=== PATIENT | female | born 1950 | race African-American/Black ===

== ENCOUNTER 2017-02-21 00:31 | Emergency (ER) | payer MEDICAID ==
[~2017-02-21] VITALS: Ht 167.6 cm; Wt 85.0 kg
[~2017-02-21 00:31] MED LIST: BRIM5DRO EACHEYE
[2017-02-21] MEDS ORDERED: ONDANSETRON 4MG ODT PO ONE (05:00)
[2017-02-21] MEDS ORDERED: KETOROLAC 30MG/ML VIAL IM ONE (05:00)
[2017-02-21 07:39] VITALS: BP 126/68
== END 2017-02-21 07:41 | disposition home or self-care (01) ==
LOC: ER 00:31
DX: L03.115 Cellulitis of right lower limb (principal); I11.0 Hypertensive heart disease with heart failure; I50.9 Heart failure, unspecified; E11.9 Type 2 diabetes mellitus without complications
CPT/HCPCS: 93971; 96372; 99284; J1885; Q0162; Z7610

== ENCOUNTER 2018-07-13 22:46 | Emergency (ER) | payer MEDICARE, MEDICAID ==
[~2018-07-13] VITALS: Ht 162.6 cm; Wt 81.8 kg
[2018-07-13] MEDS ORDERED: HYDROCODONE/ACETAMINOPHEN 5/325MG TABLET PO STA (23:09)
[2018-07-13 23:53] LABS: BASOPHILS % 0.3 % (0.0-2.0); EOSINOPHILS % 1.2 % (0.0-5.0); HEMATOCRIT. 33.7 % (36.0-48.0); LYMPHOCYTES % 30.3 % (20.0-50.0); MEAN CORPUSCULAR HEMOGLOBIN 24.7 pg (28.0-32.0); MEAN CORPUSCULAR VOLUME 75.6 fL (81.0-99.0); MEAN PLATELET VOLUME 9.4 fl (7.4-10.4); MONOCYTES % 8.3 % (2.0-8.0); NEUTROPHILS % 59.9 % (40.0-76.0); PLATELET 150 x1000/uL (130-400); RED BLOOD CELL COUNT 4.46 mill/uL (4.2-5.4); RED CELL DISTRIBUTION WIDTH 15.4 % (11.6-14.6)
[2018-07-13 23:59] LABS: CHLORIDE 96 mEq/L (98-107)
[2018-07-14 01:35] LABS: CLARITY URINE CLEAR (CLEAR); COLOR URINE YELLOW (YELLOW); KETONES URINE NEGATIVE (NEGATIVE); LEUKOCYTE ESTERASE URINE NEGATIVE (NEGATIVE); NITRITE URINE NEGATIVE (NEGATIVE); OCCULT BLOOD URINE TRACE (NEGATIVE); PH URINE 6.5 (4.5-8.0); PROTEIN URINE 2+ (NEGATIVE); UROBILINOGEN URINE 0.2 E.U./dL (0.2-1.0)
[2018-07-14] MEDS ORDERED: INSULIN REGULAR (HUMULIN R) 300UNITS/3ML SUBCUT ONE ×2 (02:00→02:45)
[2018-07-14 02:45] VITALS: BP 123/55
== END 2018-07-14 03:34 | disposition home or self-care (01) ==
LOC: ER 22:46
DX: E11.65 Type 2 diabetes mellitus with hyperglycemia (principal); I11.0 Hypertensive heart disease with heart failure; I50.9 Heart failure, unspecified; R10.11 Right upper quadrant pain; Z90.710 Acquired absence of both cervix and uterus; Z90.49 Acquired absence of other specified parts of digestive tract; Z79.899 Other long term (current) drug therapy
CPT/HCPCS: 36415; 74176; 80053; 81003; 82962; 85025; 96372; 99284; J1815